=== PATIENT | male | born 1955 | race African-American/Black ===

== ENCOUNTER 2022-10-06 11:01 | Emergency (ER) | payer OTHER ==
[2022-10-06] MEDS ORDERED: Morphine 4 MG/ML VIAL ONE (12:15)
[2022-10-06] MEDS ORDERED: Morphine 2 MG/ML VIAL ONE (12:15)
== END 2022-10-06 12:26 | disposition home or self-care (01) ==
LOC: CSHERS 11:01
DX: S42.321A Displaced transverse fracture of shaft of humerus, right arm, initial encounter for closed fracture (principal); I10 Essential (primary) hypertension; W11.XXXA Fall on and from ladder, initial encounter
CPT/HCPCS: 96372; J2270; J2272